=== PATIENT | female | born 1985 | race Caucasian/White ===

== ENCOUNTER 2022-07-07 20:47 | Inpatient (IN) | payer OTHER, SELFPAY ==
[2022-07-07] VITALS (18 sets, daily range): BP systolic 86–123; BP diastolic 46–104; PULSE 148–170; RESP 23–47; TEMP 38.3–38.6; O2SAT 90–97
--- NOTE | ~2022-07-07 | US_ITS ---
Renal-Bladder ultrasound Clinical History: Acute renal insufficiency Technique: Real-time sonographic imaging of the kidneys and urinary bladder was performed. Findings: The right kidney measures 11.6 cm in length and the left kidney measures 10.9 cm. There is no hydronephrosis or renal calculus identified. Renal cortical echogenicity is within normal limits. No renal mass lesion is identified. The urinary bladder is collapsed around a Dickerson catheter. Impression: Unremarkable ultrasound of the kidneys. Collapsed urinary bladder limits evaluation. Reviewed, dictated and finalized at location M. NER TECHNICIAN Impression: Unremarkable ultrasound of the kidneys. Collapsed urinary bladder limits evaluation.
--- NOTE | ~2022-07-07 | XR_ITS ---
Supine view of the abdomen Clinical history: NG tube placement Findings: NG tube is in satisfactory position. Bowel gas pattern is nonspecific. No evidence for obst ruction or free air. No abnormal mass lesion or calcification is seen. Osseous structures are intact. Bibasilar pulmonary airspace disease noted, with probable small left pleural effusion. Impression: NG tube in satisfactory position. Small left pleural effusion with bibasilar pulmonary airspace consolidation. Reviewed, dictated and finalized at location . HOUSE OPERATOR Impression: NG tube in satisfactory position. Small left pleural effusion with bibasilar pulmonary airspace consolidation.
--- NOTE | ~2022-07-07 | XR_ITS ---
EXAMINATION: XR chest 1V portable DATE: 07/07/2022 21:50 INDICATION: Shortness of breath. TECHNIQUE: A single frontal view of the chest was obtained. COMPARISON: None. FINDINGS: There are airspace opacities in right mid and lower lung zones and left perihilar region. N o pleural effusion or pneumothorax. The heart size is normal. IMPRESSION: 1. Airspace opacities in right mid and lower lung zones and left perihilar region, consistent with pn eumonia. Reviewed, dictated and finalized at location A. LY LIFE COUNSELOR IMPRESSION: 1. Airspace opacities in right mid and lower lung zones and left perihilar donya on, consistent with pneumonia.
--- NOTE | ~2022-07-07 | XR_ITS ---
Portable chest x-ray Comparison: 07/07/2022 Clinical History: Tube placement Findings: Endotracheal tube is present, tip 1 cm above the chihco. NG tube and right IJ line are in satisfactory positions. There is extensive dense left lower lobe consolidation with air bronchograms and possible small left pleural effusion. There is more hazy airspace disease throughout the right domonique ng base and bilateral perihilar regions. Cardiomediastinal silhouette is stable. Bones and soft tiss ues are unremarkable. Impression: ET tube tip is 1 cm above the chicho. Consider mild retraction. Additional support tubes in place, as above. Extensive bibasilar and perihilar airspace consolidation, as detailed above, most confluent at the le ft lung base. Correlate for pulmonary edema/atelectasis versus pneumonia. Probable small left pleural effusion. Reviewed, dictated and finalized at [facility]. 'S ADVISER Impression: ET tube tip is 1 cm above the chicho. Consider mild retraction. Additional supp ort tubes in place, as above. Extensive bibasilar and perihilar airspace consolidation, as detailed above, mo st confluent at the left lung base. Correlate for pulmonary edema/atelectasis v ersus pneumonia. Probable small left pleural effusion.
--- NOTE | ~2022-07-07 | US_ITS ---
EXAMINATION:US venous doppler LE BI INDICATION:Elevated d-dimer TECHNIQUE: Multiple grayscale, color flow and Doppler images of the right and left lower extremity de ep venous systems were obtained and reviewed. COMPARISON:No prior studies for comparison. FINDINGS: The common femoral, superficial femoral and popliteal veins demonstrate normal respiratory variation, augmentation and compressibility. Color flow is also seen within the posterior tibial, pe roneal, greater saphenous and profunda veins. IMPRESSION: 1: No lower extremity deep venous thrombosis. Reviewed, dictated and finalized at location B. CLERK
--- NOTE | 2022-07-07 21:04 | ECG_ITS ---
Measurements Intervals [place] Rate: 169 P: ID: 0 QRS: 97 QRSD: 88 T: 69 QT: 290 QTc: 486 Interpretive Statements SUPRAVENTRICULAR TACHYCARDIA BORDERLINE RIGHT AXIS DEVIATION [QRS AXIS > 90] ABNORMAL RHYTHM ECG NO PREVIOUS ECG AVAILABLE FOR COMPARISON Electronically Signed On 07-08-2022 15:15:57 BOTTOM PRESSER by Luis Alberto Nina M.D.
--- NOTE | 2022-07-07 21:18 | ED.GENADULT ---
HPI - General Adult General Chief complaint: Nausea/Vomiting/Diarrhea Stated complaint: sob Time Seen by Provider: 07/07/22 21:12 History of Present Illness HPI narrative: 37-year-old female presented to the emergency department for evaluation of cough fever and shortness of breath since Monday. Patient reports she started to have some cough and congestion last week and it began to worsen over the weekend and then this week it began to rapidly worsen. Patient reports she has had COVID previously. Patient denies any other significant past medical history. Patient does take Zoloft but states she has not been able to take her Zoloft due to feeling poorly. Patient denies any prior history of cancer. Patient denies any prior history of PE DVT. Related Data Allergies Allergy/AdvReac Type Severity Reaction Status Date / Time No Known Allergies Allergy Verified 07/07/22 21:47 Review of Systems Review of Systems: CONSTITUTIONAL: See HPI EYES: Denies visual changes, redness, or discharge. ENT: Denies rhinorrhea, congestion, sore throat, or otalgia. CARDIOVASCULAR: Denies chest pain, palpitations, or edema. RESPIRATORY: See HPI GASTROINTESTINAL: Denies abdominal pain, nausea, vomiting, or diarrhea. GENITOURINARY: Denies dysuria or hematuria. SKIN: Denies rash or itching. MUSCULOSKELETAL: Denies back pain, joint pain, or myalgia. NEUROLOGIC: Denies headache, numbness, or weakness. Exam Narrative: APPEARANCE: Ill-appearing HEAD: normocephalic, atraumatic. EYES: PERRLA/EOMI, conjunctivae clear. NOSE: Normal no drainage EARS: Right TM erythema THROAT: Pharynx clear, no exudate. NECK: Supple. No adenopathy, no masses. RESPIRATORY: Decreased breath sounds in lower lung coleman CARDIOVASCULAR: Tachycardia ABDOMINAL: Soft, nontender, nondistended, normal bowel sounds MUSCULOSKELETAL: Moves all extremities. Strength/ROM intact, No edema, No calf tenderness. NEURO: Alert. Cranial nerves II through XII intact. Grossly intact Course Course Emergency Course: 37-year-old female with right-sided pneumonia. Patient's fever was treated with IV Tylenol and IV Toradol. Blood cultures are pending. Patient was treated with Rocephin and azithromycin. Patient does have significant electrolyte abnormalities including hypokalemia and hyponatremia along with elevated lactic acid of 7.1. 3 L of normal saline were ordered along with maintenance fluids. Creatinine is 3.4 and patient's BUN is 40. Patient's potassium was replaced orally and through IV. Patient was updated on results of the work-up and plan for admission. Case was discussed with hospitalist and patient was placed in the IMU. Patient was placed on Vapotherm for increased work of breathing. Vital Signs Vital signs: Vital Signs Temperature 101.4 F H 07/07/22 20:57 Pulse Rate 170 H 07/07/22 20:57 Respiratory Rate 24 H 07/07/22 20:57 Blood Pressure 123/104 H 07/07/22 20:57 Pulse Oximetry 91 07/07/22 20:57 Oxygen Delivery Room Air 07/07/22 20:57 Temperature 101.4 F H 07/07/22 20:57 Pulse Rate 170 H 07/07/22 20:57 Respiratory Rate 24 H 07/07/22 20:57 Blood Pressure 123/104 H 07/07/22 20:57 Pulse Oximetry 91 07/07/22 20:57 Oxygen Delivery Room Air 07/07/22 20:57 Medical Decision Making Vital Signs Vital Signs: Vital Signs Temperature 101.4 F H 07/07/22 20:57 Pulse Rate 170 H 07/07/22 20:57 Respiratory Rate 24 H 07/07/22 20:57 Blood Pressure 123/104 H 07/07/22 20:57 Pulse Oximetry 91 07/07/22 20:57 Oxygen Delivery Room Air 07/07/22 20:57 Temperature 101.4 F H 07/07/22 20:57 Pulse Rate 170 H 07/07/22 20:57 Respiratory Rate 24 H 07/07/22 20:57 Blood Pressure 123/104 H 07/07/22 20:57 Pulse Oximetry 91 07/07/22 20:57 Oxygen Delivery Room Air 07/07/22 20:57 Lab Data Lab results reviewed: Yes I reviewed the patient's lab results. 07/07/22 21:35 07/07/22 21:35 Labs: Lab Results
[2022-07-07] MEDS: SODIUM CHLORIDE 0.9% IV 1,000 ML 999 ML IV CONT ×3 (21:23→23:59)
[2022-07-07] MEDS: LACTATED RINGERS 1,000 ML 999 ML IV CONT (21:23)
[2022-07-07 21:45] LABS: Basophils Percent Auto 1.6 % (0.2-1.2); Eosinophils Absolute Auto 0.1 K/mm3 (0-0.3); Eosinophils Percent Auto 7.3 % (0-4.4); Hematocrit 43.5 % (37.0-47.0); Hemoglobin 15.2 g/dL (12.0-15.0); Immature Granulocyte Absolute 0.02 K/mm3 (0.00-0.031); Immature Granulocyte Percent A 1.6 % (0-0.5); Lymphocytes Absolute Auto 0.19 K/mm3 (0.9-3.2); Lymphocytes Percent Auto 15.3 % (18.3-44.2); Mean Corpuscular HGB Conc 34.9 g/dl (32-36); Mean Corpuscular Hemoglobin 31.7 pg (26-34); Mean Corpuscular Volume 90.6 fl (80-100); Mean Platelet Volume 10.5 fl (7.4-10.4); Monocytes Absolute Auto 0.1 K/mm3 (0.1-0.6); Monocytes Percent Auto 8.1 % (2.6-8.5); Neutrophils Absolute Auto 0.8 K/mm3 (1.3-6.7); Neutrophils Percent Auto 66.1 % (45.5-73.1); Platelet Count Result 192 k/mm3 (150-375); Red Cell Distribution Width 12.3 % (11.5-14.5)
[2022-07-07 21:47] LABS: White Blood Count 1.2 K/mm3 (4.5-10.0)
[2022-07-07] MEDS: LORazepam INJ (*CRX) 2 MG/ML VIAL 1 MG IV PUSH (21:49)
[2022-07-07] MEDS: SERTRALINE HCL 50 MG TABLET PO (21:49)
[2022-07-07] MEDS: ALBUTEROL SULFATE NEB 2.5 MG/3 ML INH 5 MG INHALATION (21:51)
[2022-07-07 22:03] LABS: Lactic Acid Reflex 7.1 mmol/L (0.7-2.0)
[2022-07-07 22:05] LABS: Albumin Level 4.7 g/dL (3.5-5.1); Alkaline Phosphatase 44 U/L (38-126); Anion Gap 21 mmol/L (8-16); Aspartate Amino Transferase 65 U/L (14-36); Bilirubin,Total 0.6 mg/dL (0.2-1.3); Blood Urea Nitrogen 40 mg/dL (7-17); Calcium 8.3 mg/dL (8.4-10.2); Carbon Dioxide 16 mmol/L (22-30); Chloride 92 mmol/L (98-107); Estimated CRCL calculation 19 ml/min; Estimated Glomerular Filt Rate 15; Glucose 112 mg/dL (65-110); Lipase 13 U/L (23-300); Potassium 2.7 mmol/L (3.4-5.0); Sodium 129 mmol/L (137-145)
[2022-07-07 22:06] LABS: Alanine Aminotransferase 46 U/L (6-35)
[2022-07-07 22:21] LABS: Influenza A QL RT-PCR Negative (Negative); Influenza B QL RT-PCR Negative (Negative); RSV RNA, RT-PCR Negative (Negative); SARS-CoV-2 RNA PCR Negative
[2022-07-07 22:33] LABS: Band Neutrophils Percent 40 % (0-6); Blastocytes 2 %; Large Platelets Present; Lymphocytes Absolute Manual 0.18 K/mm3 (1.1-4.5); Metamyelocytes Percent 10 %; Monocytes Absolute Manual 0.07 K/mm3 (0.1-0.90); Monocytes Percent Manual 6 % (3-9); Neutrophils Percent Manual 27 % (46-73); Platelet Estimate Adequate (Adequate); Total Cells Counted 100
[2022-07-07 22:34] LABS: Macrocytosis 1+ (NORMAL); Poikilocytosis 1+ (NORMAL)
[2022-07-07 22:35] LABS: Atypical Lymphocytes Present; Burr Cells 1+ (NORMAL); Crenated RBC 1+ (NORMAL); Rouleaux 1+ (NORMAL); Schistocytes None Seen (NORMAL)
[2022-07-07] MEDS: KCL 20 MEQ/SW 100 ML 100 ML 50 MEQ IVPB (22:41)
[2022-07-07] MEDS: POTASSIUM CHLORIDE 20 MEQ PACKET (FOR LIQUID) 40 MEQ PO (22:41)
[2022-07-07 23:29] LABS: Strep Group A RT-PCR DETECTED (Negative)
[2022-07-07] MEDS: KETOROLAC 15 MG/ML VIAL (*BKC) IV PUSH (23:30)
[2022-07-07 23:43] LABS: Creatine Kinase 969 U/L (30-135)
--- NOTE | 2022-07-07 23:50 | PC.NURSE ---
Dr. Lim, hospitalist, contacted and aware of pt's low bp.
[2022-07-08] VITALS (59 sets, daily range): BP systolic 68–133; BP diastolic 49–97; PULSE 121–150; RESP 18–42; TEMP 37.7–38.8; O2SAT 86–100; BMI 26.9; BMI 28.7
--- NOTE | 2022-07-08 00:20 | PC.NURSE ---
Dr. Lim, hospitalist at bedside evaluating pt, 3rd IV placed.
[2022-07-08 00:42] LABS: Reflex Lactic Acid Yes or No Add Lactic
--- NOTE | 2022-07-08 00:45 | PM.IMHP ---
H&P: HPI History of Present Illness Date/Time: 07/08/22 00:45 Chief Complaint: sob Narrative: This is a 37 yo female with PMHx significant for Depression and generalized anxiety, patient presents to ED with 2 days of cough non productive, fevers, chills, sob, poor per oral intake, poor appetite, generalized malaise, generalized weakness, muscle aches and pains, states that her 2 children are sick as well at home she has been managing at home however today it just got worse . In emergency room patient was found to have low oxygen saturation as well, requiring HFONC, had episode of hypotension as well wich responded to fluids. Preliminary work up was significant for a lactic acid of 7, a WBC count of 1.2, bands 40%, blasts 2%, sodium 129, Cr 3.4 , Bun 40.Upon arrival to IMU patient was noted to have significant change of status with altered consciousness, low pulse oxygenation, increased Fi O2 to 100% ABG showed a ph of 7.1, decision was made to place patient on ventilator support.Patient is now transferred to ICU on ventilator support. Review of Systems Constitutional: Constitutional: Reports chills, Reports fever(s), Reports malaise, Reports night sweats, Reports poor appetite and Reports weakness Eyes: Eyes: Denies change in vision ENT: Denies dysphagia and Denies odynophagia Respiratory: Respiratory: Reports chest congestion, Reports cough and Reports dyspnea Gastrointestinal: Gastrointestinal: Denies abdominal pain, Denies dyspepsia, Denies heartburn, Denies diarrhea, Denies nausea and Denies vomiting Genitourinary: Genitourinary: Denies dysuria Musculoskeletal: Musculoskeletal: Reports myalgias Integumentary/Breasts: Skin/Breast: Denies rash Neurologic: Denies focal weakness and Denies Sensory deficit (Neuro) Psychiatric: Psychiatric: Reports no additional psychiatric complaints and Reports as per HPI Endocrine: Endocrine: Denies cold intolerance, Denies flushing, Denies heat intolerance, Denies polyphagia, Denies polydipsia and Denies palpitations Hematologic/Lymphatic: Hematologic/Lymphatic: Reports no additional hematologic/lymphatic complaints and Reports as per HPI Allergic/Immunologic: Allergic/Immunologic: Reports no additional allergic/immunologic complaints and Reports as per HPI [facility] Social History Social History Smoking status: Never smoker Alcohol intake: never Substance use: never Substance use type: does not use Lack of Transportation: No Lack of Food: Never True Current Housing: I Have Housing Concerned About Future Housing: No Difficulty Paying Gas/Electric Bills: No Difficulty Paying for Meds: No Currently Unemployed: No Education: High School Diploma/GED Difficulty w/ Childcare or Family Care: No Spiritual care concerns: No Meds Home Medications and Allergies Home Medications Medication Instructions Recorded Confirmed Type sertraline 50 mg tablet 50 mg PO DAILY 07/08/22 07/08/22 History Allergies Allergy/AdvReac Type Severity Reaction Status Date / Time No Known Allergies Allergy Verified 07/07/22 21:47 Vital Signs Vital Signs - 24 hr 07/07/22 20:57 07/07/22 21:56 07/07/22 22:10 Temperature 101.4 F H Pulse Rate 170 H 153 H 156 H Respiratory Rate 24 H 40 H 36 H Blood Pressure 123/104 H Pulse Oximetry 91 Oxygen Delivery Room Air 07/07/22 21:59 07/07/22 22:02 07/07/22 22:07 Temperature 101 F H Pulse Rate 160 H 161 H 164 H Respiratory Rate 33 H 23 H 41 H Blood Pressure 101/86 Pulse Oximetry 94 97 95 Oxygen Delivery 07/07/22 22:15 07/07/22 22:30 07/07/22 22:45 Temperature Pulse Rate 160 H 152 H 152 H Respiratory Rate 40 H 32 H 45 H Blood Pressure Pulse Oximetry 90 93 90 Oxygen Delivery 07/07/22 23:00 07/07/22 23:15 07/07/22 23:26 Temperature Pulse Rate 150 H 151 H 154 H Respiratory Rate 40 H 32 H 47 H Blood Pressure 108/48 L Pulse Oximetry 91 91 Oxygen Delivery 07/07/22 23:30 0
--- NOTE | 2022-07-08 01:30 | PC.NURSE ---
Pt states feeling a little bit better speaking in full sentences, but states feeling anxious.
--- NOTE | 2022-07-08 01:34 | PC.NURSE ---
Pt resting comfortably in bed, skin warm/dry. Dr. Greco aware of pt's blood pressure and condition. Report given to IMU RN.
--- NOTE | 2022-07-08 02:29 | ADMGEN ---
This patient, Leisa Brown, was admitted to IMU Room 202-01. Patient/family oriented to hospital policies and general routines including ID bracelet, bed and alarms, visiting hours, pain management, procedures, bathroom and other care routines, personal items, smoking policy, room service/diet, and visiting hours. Information on how to activate the Rapid Response Team has been discussed. Patient/Family are encouraged to report perceived risks to care and to ask questions if they do not understand what they are told or what they should do.
[2022-07-08] MEDS: SODIUM CHLORIDE 0.9% IV 1,000 ML 125 ML IV CONT (02:35)
[2022-07-08] MEDS: MORPHINE SULFATE (*CRX) 2 MG/ML INJ 1 MG IV PUSH (03:08)
[2022-07-08] MEDS: LORazepam INJ (*CRX) 2 MG/ML VIAL 1 MG IV PUSH (03:09)
[2022-07-08] MEDS: ETOMIDATE 20 MG/10 ML AMPUL 15 MG IV PUSH (03:36)
[2022-07-08 03:46] LABS: Basophils Percent Auto 1.8 % (0.2-1.2); Eosinophils Percent Auto 0.9 % (0-4.4); Hematocrit 34.6 % (37.0-47.0); Hemoglobin 11.9 g/dL (12.0-15.0); Lymphocytes Absolute Auto 0.09 K/mm3 (0.9-3.2); Lymphocytes Percent Auto 8.2 % (18.3-44.2); Mean Corpuscular HGB Conc 34.4 g/dl (32-36); Mean Corpuscular Hemoglobin 31.8 pg (26-34); Mean Corpuscular Volume 92.5 fl (80-100); Mean Platelet Volume 10.4 fl (7.4-10.4); Monocytes Absolute Auto 0.1 K/mm3 (0.1-0.6); Monocytes Percent Auto 6.4 % (2.6-8.5); Neutrophils Absolute Auto 0.9 K/mm3 (1.3-6.7); Neutrophils Percent Auto 82.7 % (45.5-73.1); Platelet Count Result 113 k/mm3 (150-375); Red Blood Count 3.74 M/mm3 (4.2-5.4); Red Cell Distribution Width 12.5 % (11.5-14.5)
[2022-07-08] MEDS: ROCURONIUM BROMIDE 50 MG/5 ML VIAL 70 MG IV PUSH (03:47)
[2022-07-08] MEDS: MIDAZOLAM 100MG/NS 100ML(*CRX) 100 MG/100 ML BAG IV CONT (04:00)
[2022-07-08] MEDS: FENTANYL 2,500MCG/NS250ML(*CRX 2,500 MCG/250 ML BAG IV CONT (04:00)
[2022-07-08 04:03] LABS: Anion Gap 14 mmol/L (8-16); Blood Urea Nitrogen 37 mg/dL (7-17); Calcium 6.2 mg/dL (8.4-10.2); Carbon Dioxide 13 mmol/L (22-30); Chloride 106 mmol/L (98-107); Creatine Kinase 1341 U/L (30-135); Estimated CRCL calculation 23 ml/min; Estimated Glomerular Filt Rate 20; Glucose 108 mg/dL (65-110); Lactate Dehydrogenase 422 U/L (120-246); Magnesium 1.4 mg/dL (1.6-2.3); Phosphorus 5.6 mg/dL (2.5-4.5); Potassium 3.4 mmol/L (3.4-5.0); Sodium 133 mmol/L (137-145)
[2022-07-08 04:13] LABS: Lactic Acid Reflex 5.7 mmol/L (0.7-2.0)
[2022-07-08 04:42] LABS: White Blood Count 1.1 K/mm3 (4.5-10.0)
--- NOTE | 2022-07-08 05:20 | WPDPROCEDUR ---
Procedures Intubation Intubation Date: 07/08/22 Intubation Time: 03:45 Sedative: etomidate Mg given: 15 Paralytic: rocuronium Mg given: 70 Laryngoscope: fiber optic video scope Assist device used: fiber optic device ET tube size: 7.5 Tube secured depth (cm): 25 Tube secured location: lips Tube placement confirmation: visualized tube passing through cords, equal breath sounds bilaterally, no breath sounds over epigastrium and confirmation by capnometry Patient tolerated procedure: no complications Intubation complications: none
--- NOTE | 2022-07-08 05:20 | WPDPROCEDUR ---
Procedures Central Line Placement Right IJ: Central Line Date: 07/08/22 Central Line Time: 04:40 Consent: I have discussed with the patient and/or surrogate, the non-emergent placement of a central venous catheter, including its clinical necessity/indication and associated potential risks and complications. The patient and/or surrogate understand(s) and acknowledge(s) the need to proceed with central venous catheter insertion as an important element of the patient's clinical management. Time Out Performed: Yes Patient Position: supine Patient placed on monitor/pulse ox: Yes Provider Prep: mask, sterile gown, sterile gloves, Max. sterile barrier precautions, cap and hand hygiene with conventional soap/water or alcohol based hand rub Central line prep: 2% Chlorhexidine scrub Sterile US Technique with sterile gel/sterile probe covers: Yes Central line lumen inserted: triple Sinhala: 15 Length (cm): 15 Depth of Insertion (cm): 15 Post Procedure: sutured in place, good blood return, all ports aspirated, flushed, capped, transparent dressing, hemostatic product, securement product and aseptic technique maintained throughout procedure Post procedure x-ray: tip of catheter in good position and no pneumothorax seen Patient tolerated procedure: no complications Complications: none
[2022-07-08] MEDS: PANTOPRAZOLE SODIUM IV 40 MG VIAL 80 MG IV PUSH (05:24)
[2022-07-08 05:36] LABS: Appearance Urine Cloudy (Clear); Bilirubin Urine Negative (Negative); Blood Urine 3+ (Negative); Color Urine Yellow (Yellow); Glucose Urine UA Negative (Negative); Hematocrit 35.3 % (37.0-47.0); Hemoglobin 12.1 g/dL (12.0-15.0); Ketones Urine Negative (Negative); Leukocyte Esterase Ur Negative LEU/UL (Negative); Nitrate Urine Negative (Negative); Protein Urine 3+ mg/dL (Negative); Specific Grav Ur 1.025 (1.001-1.035); Urobilinogen Urine 0.2 mg/dL (<2.0); pH Urine 5.5 (5.0-9.0)
[2022-07-08 05:41] LABS: Amorphous Sediment Urine Few; Bacteria Urine Trace /hpf; Mucus Urine Rare /lpf; Squamous Epithelial Cell Urine Few /hpf (Few)
[2022-07-08 05:44] LABS: Magnesium 1.5 mg/dL (1.6-2.3); Phosphorus 6.2 mg/dL (2.5-4.5)
[2022-07-08 05:46] LABS: INR 1.4; Prothrombin Time 16.5 Seconds (11.1-14.7)
[2022-07-08 05:48] LABS: Fibrinogen 511 mg/dl (215-510); Partial Thromboplastin Time 41.5 SECONDS (22.3-36.8)
[2022-07-08 05:52] LABS: SPREG INTERNAL CONTROL Positive; Serum Qual hCG Negative
[2022-07-08 06:02] LABS: Add Urine Microscopic? YES
[2022-07-08 06:04] LABS: D Dimer 15.33 ug/mL (<0.48)
[2022-07-08 06:07] LABS: Immature Platelet Fraction Pct 5.4 % (0.9-11.2); Mean Platelet Volume 10.6 fl (7.4-10.4); Platelet Count Result 118 k/mm3 (150-375)
[2022-07-08 06:16] LABS: Alveolar/Arterial O2 Gradient 561.6 mmHg; Base Excess ABG -13.1 mEq/l (+/-2.0); Carboxyhemoglobin 0.3 % THb (0-2.0); Fractional Inspired Oxygen 100 %; Methemoglobin ABG 0.4 %THb (0-1.5); Oxygen Content ABG 17.6 %vol (16.0-22.0); Oxygen Saturation ABG 97.3 % (95.0-100.0); Oxyhemoglobin 96.3 % THb (90.0-100.0); PCO2 ABG 36.4 mmHg (35.0-45.0); PO2 FiO2 Ratio Arterial Blood 1.15 %; Total Hemoglobin 12.9 g/dL (12.0-18.0)
[2022-07-08 06:17] LABS: Device VENTILATOR; Modified Allen's Test Pass; Site Drawn RIGHT RADIAL; pH ABG 7.203 (7.350-7.450)
[2022-07-08 06:18] LABS: Arterial Blood Gas Vent Mode CMV; Arterial Blood Gas Ventilator rate 18 /MIN
[2022-07-08 06:19] LABS: Arterial Blood Gas PEEP 5 cmH2O; Arterial Blood Gas Tidal Volume 400 ml
[2022-07-08] MEDS: NOREPINEPHRINE 8 MG/D5W 250 ML 8 MG/250 ML BAG 9.38 MG IV CONT (06:19)
[2022-07-08] MEDS: CENTRAL LINE FLUSH 10 ML IV PUSH ×2 (06:33→13:21)
[2022-07-08] MEDS: MAGNESIUM SULF 2 GM/WATER 50ML 2 GM/50 ML BAG IVPB (06:42)
[2022-07-08 07:04] LABS: pH ABG 7.113 (7.350-7.450)
[2022-07-08 07:05] LABS: Base Excess ABG -14.3 mEq/l (+/-2.0); HCO3 ABG 14.8 mEq/l (22.0-26.0); PCO2 ABG 47.4 mmHg (35.0-45.0); PO2 ABG 68.7 mmHg (80.0-100.0)
[2022-07-08 07:07] LABS: Oxygen Content ABG 15.6 %vol (16.0-22.0); Total Hemoglobin 12.8 g/dL (12.0-18.0)
[2022-07-08 07:08] LABS: Carboxyhemoglobin 0.3 % THb (0-2.0); Methemoglobin ABG 0.4 %THb (0-1.5); Oxyhemoglobin 86.2 % THb (90.0-100.0)
[2022-07-08 07:09] LABS: Fractional Inspired Oxygen 100 %; Reduced Hemoglobin 13.1 %THb (0-5.0)
[2022-07-08 07:10] LABS: Alveolar/Arterial O2 Gradient 596.9 mmHg
[2022-07-08 07:11] LABS: Device HIGH FLOW THERAPY; PO2 FiO2 Ratio Arterial Blood 0.69 %; Site Drawn LEFT BRACHIAL
[2022-07-08] MEDS: SODIUM BICARBONATE 8.4% 50 MEQ/50 ML SYRINGE 100 MEQ IV PUSH (07:17)
[2022-07-08] MEDS: SODIUM CHLORIDE 0.9% IV 500 ML 999 ML IV CONT (07:18)
[2022-07-08] MEDS: VASOPRESSIN INJ 100 UNITS in DEXTROSE 5% 95 ML IV CONT (07:19)
[2022-07-08] MEDS: KCL 40 MEQ/WATER 100 ML 100 ML 25 ML IVPB (07:20)
[2022-07-08] MEDS: SODIUM BICARBONATE 8.4% 150 MEQ in DEXTROSE 5% 1,000 ML 950 ML 125 MEQ IV CONT (07:40)
[2022-07-08] MEDS: HYDROCORTISONE SODIUM SUCCINATE 100 MG/2 ML VIAL IV PUSH ×2 (08:01→13:21)
[2022-07-08] MEDS: MINERAL OIL/WHITE PETROLATUM OINTMENT 1 APPLIC EACH EYE (08:09)
--- NOTE | 2022-07-08 09:51 | WPDCNINT ---
Assessment and Plan Assessment and plan (1) Septic shock: Code(s): A41.9 - Sepsis, unspecified organism; R65.21 - Severe sepsis with septic shock Status: Acute Assessment and Plan: Patient presented with shortness of breath, nonproductive cough, fevers, chills, decreased appetite, poor oral intake, general malaise, weakness and fatigue -chest x-ray showed diffuse pneumonia/consolidation -received 30 mL/kg of IV fluids -noninvasive cardiac output monitoring showed patient was fluid responsive of give additional 500 IV fluid bolus this morning -patient on Levophed and vasopressin, will maintain MAP > 65-70 mmHg for adequate end organ perfusion -patient does have elevated creatinine and decreased urine output with acute kidney injury -lactic acids are elevated and trending down, continue to trend -07/07 blood and sputum cultures have been obtained pending -antibiotics were switched to vancomycin, azithromycin and cefepime (07/08) -stress dose steroids were started (2) Acute respiratory failure with hypoxia: Code(s): J96.01 - Acute respiratory failure with hypoxia Status: Acute Assessment and Plan: Admitted with pneumonia with complains of shortness of breath, nonproductive cough, fevers and chills -she was exposed to 2 children while strep throat chest x-ray showed Extensive bibasilar and perihilar airspace consolidation, as detailed above, most confluent at the left lung base. Correlate for pulmonary edema/atelectasis versus pneumonia. -patient's ABG showed a pH of 7.1, she was on 100% high-flow therapy, impending respiratory failure was intubated on 07/08/2022 in the morning -currently on CMV mode of ventilation, peep of 5 and 100% FiO2, wean FiO2 to maintain O2 sats greater than 92% -will add bronchodilators -sedated with fentanyl and Versed infusion, maintain RASS of 0 to -2, daily sedation vacation -continue antibiotics as (3) Pneumonia: Code(s): J18.9 - Pneumonia, unspecified organism Status: Acute Assessment and Plan: Antibiotics as above (4) CORTES (acute kidney injury): Code(s): N17.9 - Acute kidney failure, unspecified Status: Acute Assessment and Plan: Acute kidney injury likely related to shock, infection, streptococcal related globulin FiO2 -07/08 unremarkable renal ultrasound of the kidneys -patient received adequate amount of IV fluids - CK levels elevated -switched IV fluids to bicarb infusion secondary to acidosis and rhabdomyolysis -nephrology has been consulted -you continue monitor urine output, renal function electrolytes (5) Electrolyte imbalance: Code(s): E87.8 - Other disorders of electrolyte and fluid balance, not elsewhere classified Status: Acute Assessment and Plan: Potassium and magnesium replaced overnight by the hospitalist -mild hyponatremia, will continue to monitor Plan DVT prophylaxis: SQ Lovenox Stress ulcer prophylaxis: Protonix Nutrition: Will start tube feeds in a.m. Lines: Right IJ triple-lumen catheter placed on 07/08/2022 Left femoral arterial line placed on 07/08/2022 Code Status: Full code Critical Care Time Spent: 55 minutes Discussed with and patient's mother and updated with patient's condition and plan of care. I explained to them regarding septic shock and end-organ failure, I answered all questions Due to a high probability of clinically significant, life threatening deterioration, the patient required my highest level of preparedness to intervene emergently and I personally spent this critical care time directly and personally managing the patient. This critical care time included obtaining a history; examining the patient; pulse oximetry; ordering and review of studies; arranging urgent treatment with development of a management plan; evaluation of patient's response to treatment; frequent reassessment; and discussions with other providers. It was exclusive of separately soco
--- NOTE | 2022-07-08 10:35 | PM.CNNEP ---
Assessment and Plan Assessment and plan (1) CORTES (acute kidney injury): Code(s): N17.9 - Acute kidney failure, unspecified Status: Acute Assessment and Plan: due to several issues: shock/hemodynamics instability infection possible prerenal factors rhabodmyolysis evaluation to date noted: renal u/s without obstruction CPK levels are elevated urine studies pending agree with bicarb IVFs now remains at risk for PEOPLESOFT ANALYST/dialysis follow repeat labs and UOP (2) Septic shock: Code(s): A41.9 - Sepsis, unspecified organism; R65.21 - Severe sepsis with septic shock Status: Acute Assessment and Plan: as evidence by SOB, fever, malaise, CORTES, lactic acidosis s/p aggressive IVF resuscitation now on vasopressor therapy follow trend of lactic acid follow culture data continue antibiotic therapy (3) Acute respiratory failure with hypoxia: Code(s): J96.01 - Acute respiratory failure with hypoxia Status: Acute Assessment and Plan: due to pneumonia as noted by admission CXR follow cultures on antibiotics bronchodilators added as well as steroids ventilator weaning when more stable (4) Pneumonia: Code(s): J18.9 - Pneumonia, unspecified organism Status: Acute Assessment and Plan: see #3 Long extensive discussion ( greater than 20 minutes) with the patient's family at bedside with regard to her acute medical issues including her acute renal failure/ acute kidney injury and the hope that current aggressive measures will help stabilize her renal function with the hope that renal replacement therapy/dialysis will not be needed. Discussed case with Dr. Bolivar. Will continue to follow. History of Present Illness Reason for Consult Consult date: 07/08/22 Reason for consult: acute renal failure (1040) Chief Complaint Chief complaint: Pneumonia,hypokalemia,hyponatremia,CORTES History of Present Illness Narrative: All the information I obtained is from review of the electronic medical record, discussion with the physician/ nurses involved in the patient's care, and discussion with her family at bedside as the patient is unable to provide me with any history as she is currently intubated and on mechanical ventilation. The patient is a 37-year-old female with a past medical history as outlined below who presented to [facility] Emergency room a few days ago with complaints of cough, fever, and shortness of breath. The symptoms have been present for the last 3 or 4 days and a progressively worsened. Other associated symptoms included fevers, chills, poor oral intake, decreased appetite, generalized malaise, weakness, and fatigue. Furthermore, she reported significant aches and pains in her muscles as well. Apparently, her 2 children are sick with strep throat and her symptoms seem to worsen since that discovery. She presented to the emergency room for further assessment given her worsening symptoms in general. Workup and evaluation in the emergency room demonstrated relative hypoxia requiring application of a high-flow nasal oxygen. She also is hypotensive but actually responded to aggressive IV fluid support. Routine blood test demonstrated an elevated lactic acid of 7.1, leukopenia with a white blood cell count of 1.2 with 40% bandemia, relative hyponatremia, and elevated BUN and creatinine consistent with acute kidney injury/acute renal failure. Her CPK was elevated as was her LFTs and she was noted to be hypokalemic as well. test was negative and her chest x-ray showed extensive bibasilar and perihilar airspace consolidation thought to be a combination of possible pulmonary edema /atelectasis / pneumonia. Her ABG showed a pH is 7.11, pCO2 47 and a PO2 of 668 despite 100% high-flow oxygen therapy and hand she had to be intubated and placed on mechanical ventilation. due to concerns for a pending respiratory failure as
[2022-07-08] MEDS: NOREPINEPHRINE 8 MG/D5W 250 ML 8 MG/250 ML BAG 56.25 MG IV CONT (10:54)
[2022-07-08 10:57] LABS: Creatinine Urine 157.5 mg/dL
[2022-07-08 11:08] LABS: Eosinophil Urine None Seen % (None Seen)
[2022-07-08] MEDS: PANTOPRAZOLE SODIUM IV 40 MG VIAL IV PUSH (11:12)
[2022-07-08] MEDS: ALBUMIN HUMAN 25% 25 GM/100 ML 100 ML IVPB (11:12)
[2022-07-08 11:21] LABS: Urine Eos QC 2nd Tech Confirmed
[2022-07-08 11:43] LABS: Potassium Urine Random 67.8 meq/L; Sodium Urine Random 21 meq/L
--- NOTE | 2022-07-08 11:43 | P.PCNBED_ITS ---
Procedures Arterial Line Arterial Line Date: 07/08/22 Arterial Line Time: 09:15 Discussed with the patient/family/POA, the placement of an arterial catheter, including its clinical necessity/indication and associated potential risks, benefits and alternatives.: Yes Patient/family/POA and/or understands and acknowledges the need to proceed with the arterial catheter insertion as an important element of the patient's clinical management.: Yes Time Out Performed: Yes Patient Position: supine Branch Service Leader Prep: sterile gown, sterile gloves, mask and hat Site: left and femoral Site Prep: chlorhexidine Skin Anesthesia: 1% lidocaine Technique used: ultrasound-guided Size (Gauge): 14 Length: 12 cm Closure/Dressing: suture, transparent dressing, hemostatic product, antimicrobial product and securement product Patient tolerated procedure: well Complications: none
[2022-07-08 11:45] LABS: Glucose Point of Care 175 mg/dl (65-105)
[2022-07-08] MEDS: LEVALBUTEROL NEB 1.25 MG/3 ML 0.63 MG INHALATION (14:15)
[2022-07-08] MEDS: IPRATROPIUM BR 0.02% INH SOLN 0.5 MG/2.5 ML VIAL INHALATION (14:15)
--- NOTE | 2022-07-08 14:37 | PM.DS ---
DS: Admitting Diagnosis Discharge Date 07/08/2022 Admitting Diagnosis Septic shock DS: Discharge Diagnosis Discharge Diagnosis (1) Septic shock: Code(s): A41.9 - Sepsis, unspecified organism; R65.21 - Severe sepsis with septic shock Status: Acute (2) Acute respiratory failure with hypoxia: Code(s): J96.01 - Acute respiratory failure with hypoxia Status: Acute (3) Pneumonia: Code(s): J18.9 - Pneumonia, unspecified organism Status: Acute (4) CORTES (acute kidney injury): Code(s): N17.9 - Acute kidney failure, unspecified Status: Acute (5) Electrolyte imbalance: Code(s): E87.8 - Other disorders of electrolyte and fluid balance, not elsewhere classified Status: Acute DS: Summary Hospital Course Hospital Course: # Septic shock: Patient presented with shortness of breath, nonproductive cough, fevers, chills, decreased appetite, poor oral intake, general malaise, weakness and fatigue for past 2 days. She was noted to be hypoxic in the ER requiring high-flow nasal cannula an episode of hypotension has responded to fluids. Lactic acid was quite elevated at 7 with WBC count 1.2 with 40% bands and 2% blasts. Creatinine was 3.4. Patient was admitted to the IMU with severe sepsis however noted to have altered mental status with low oxygen saturation severe respiratory acidosis and hence was intubated emergently and transferred to the ICU -chest x-ray showed diffuse pneumonia/consolidation -received 30 mL/kg of IV fluids patient was started on Levophed and vasopressin to maintain organ perfusion. Also has CORTES with creatinine of 3.4 on admission Panculture Bacteremic with Gram-positive cocci in chains possibly Streptococcus Broad-spectrum antibiotic with vancomycin azithromycin cefepime Stress dose steroids were also started # acute respiratory failure with hypoxia: Associated with pneumonia Exposed to children with strep throat Chest x-ray with extensive bibasilar and perihilar airspace opacities /consolidation most confluent at the left lung base. Correlate for pulmonary edema/atelectasis versus pneumonia. ABG with pH 7.1 on 100% high-flow therapy impending respiratory failure Intubated 07/08/2022 and placed on full support Continue bronchodilators # pneumonia: On broad-spectrum antibiotics # CORTES: Creatinine 3.4 on admission. Continue IV fluid/resuscitation. Change to bicarb due to acidosis and rhabdomyolysis # lactic acidosis: Severely elevated on admission # electrolyte imbalance: Potassium and magnesium replaced overnight by the hospitalist mild hyponatremia, will continue to monitor # DVT prophylaxis: Lovenox # code status: Full code Disposition: Patient was transferred to [facility] ICU for higher level of care Where she was accepted and getting transferred. Time Spent with Patient Time attestation: Total time spent providing and/or coordinating discharge services: 30 minutes Exam Narrative: General: Intubated and sedated, in no distress HEENT:? Pupils equal and reactive, sclera is clear, ETT in place Neck:? Supple Respiratory:? Bilateral coarse breath sounds, decreased at bases, adequate air entry, no wheezing Cardiac:? Sinus tachycardia, S1-S2 is normal Abdomen:? Soft, nontender, nondistended, hypoactive bowel sounds Extremities:? No edema, palpable pedal pulses, warm Neuro:? Patient is intubated, sedated, does not open his eyes or follow simple commands Skin:? No skin lesions/rash noted Psych:? Unable to assess at this time DS: Data Data Completed and Pending Pending studies at discharge: Pending at discharge 07/08/22 06:26 Cytology [PTH] Routine Labs on day of discharge: Labs from last 24 hours 07/08/22 07/08/22 07/08/22 12:38 11:18 10:35 WBC RBC Hgb Hct MCV MCH MCHC RDW Plt Count MPV Immature Gran % (Auto) Neut % (Auto) Lymph % (Auto) [place] % (Auto) Eos % (Auto)
--- NOTE | 2022-07-08 15:51 | PM.TDS ---
Transfer Discharge Sum: Prov Provider Date of admission: 07/07/22 22:18 Primary care physician: Ronan Burkett MD Admitting clinician: Abigail Lim MD Consults: 07/08/22 Consult to Physician Routine Comment: spoke w dr @ 0910 (, ) Consulting Provider: Ned Xiong score caller/MD group to consult: Hem/Onc Reason for consultation: Leukopenia/Blasts Has provider been notified: Yes Consult to Physician Routine Comment: spoke with office @ 0905 (, ) Consulting Provider: Tian Murillo score caller/MD group to consult: Nephrology Reason for consultation: CORTES Has provider been notified: Yes DS: Admitting Diagnosis Discharge Date 07/08/2022 Admitting Diagnosis septic shock DS: Discharge Diagnosis Discharge Diagnosis (1) Septic shock: Code(s): A41.9 - Sepsis, unspecified organism; R65.21 - Severe sepsis with septic shock Status: Acute (2) Acute respiratory failure with hypoxia: Code(s): J96.01 - Acute respiratory failure with hypoxia Status: Acute (3) Pneumonia: Code(s): J18.9 - Pneumonia, unspecified organism Status: Acute (4) CORTES (acute kidney injury): Code(s): N17.9 - Acute kidney failure, unspecified Status: Acute (5) Electrolyte imbalance: Code(s): E87.8 - Other disorders of electrolyte and fluid balance, not elsewhere classified Status: Acute Transfer Discharge Sum: Med Medications Active and Home Medications: Home Medications sertraline 50 mg tablet 50 mg PO DAILY 07/08/22 [History Confirmed 07/08/22] Active Medications Dextrose (Dextrose 50% 25 Gm/50 Ml Syringe) 12.5 gm IV PUSH PRN PRN; Protocol PRN Reason: Hypoglycemia Enoxaparin Sodium (Enoxaparin 30 Mg/0.3 Ml Syringe) 30 mg SUB-Q DAILY ANGEL Glucagon (Glucagon For Inj 1 Mg Vial) 1 mg IM PRN PRN; Protocol PRN Reason: Hypoglycemia Hydrocortisone Sodium Succinate (Hydrocortisone Sodium Succinate 100 Mg/2 Ml Vial) 100 mg IV PUSH Q8HR ANGEL Last Admin: 07/08/22 13:21 Dose: 100 mg Acetaminophen (Ofirmev 1,000 Mg Ivpb) 1,000 mg in 100 mls @ 400 mls/hr IVPB Q6H PRN PRN Reason: Mild Pain (1-3) or Fever Stop: 07/08/22 22:16 Last Infusion: 07/08/22 08:35 Dose: Infused Fentanyl Citrate (Fentanyl 2,500 Mcg/Ns 250 Ml) 2,500 mcg in 250 mls @ 10 mls/hr IV CONT .Q25H ANGEL; Protocol Last Titration: 07/08/22 12:03 Dose: 100 mcg/hr, 10 mls/hr Midazolam HCl (Versed 100 Mg/Ns 100 Ml) 100 mg in 100 mls @ 4 mls/hr IV CONT .Q25H ANGEL; Protocol Last Titration: 07/08/22 12:02 Dose: 4 mg/hr, 4 mls/hr Norepinephrine Bitartrate (Levophed 8 Mg/D5w 250 Ml) 8 mg in 250 mls @ 52.5 mls/hr IV CONT .Q4H46M ANGEL; Protocol Last Titration: 07/08/22 15:38 Dose: Infused Vancomycin HCl (Vancomycin 1,000 Mg/D5w 250 Ml) 1,000 mg in 250 mls @ 250 mls/hr IVPB Q24H [facility] Last Infusion: 07/08/22 09:19 Dose: Infused Vasopressin 100 units/ (Dextrose) 100 mls @ 2.4 mls/hr IV CONT .[id number] ANGEL; Protocol Last Titration: 07/08/22 12:04 Dose: 0.04 units/min, 2.4 mls/hr Sodium Bicarbonate 150 meq/ (Dextrose) 1,100 mls @ 125 mls/hr IV CONT .Q8H48M ANGEL Last Infusion: 07/08/22 09:17 Dose: 125 mls/hr Cefepime HCl (Maxipime 2 Gm/D5w 50 Ml) 2 gm in 50 mls @ 100 mls/hr IVPB DAILY ANGEL Last Infusion: 07/08/22 09:50 Dose: Infused Azithromycin (Zithromax) 500 mg in 250 mls @ 250 mls/hr IVPB Q24H ANGEL Albumin Human (Albutein) 100 mls @ 60 mls/hr IVPB Q6HR ANGEL Stop: 07/09/22 19:39 Last Admin: 07/08/22 11:12 Dose: 60 mls/hr Dextrose (Dextrose 5% 1,000 Ml) 1,000 mls @ 100 mls/hr IVPB PRN PRN; Protocol PRN Reason: Hypoglycemia Insulin Aspart (Insulin Aspart (*Bkc) 100 Units/Ml) 3 - 6 units SUB-Q Q6HR [facility]; Protocol Last Admin: 07/08/22 12:01 Dose: Not Given Ipratropium [place] (Ipratropium Br 0.02% Inh Soln 0.5 Mg/2.5 Ml Vial) 0.5 mg INHALATION Q6HRT ANGEL Last Admin: 07/08/22 14:15 Dose: 0.5 mg Levalbuterol HCl (Levalbuterol Neb 1.25 Mg/3 Ml) 0.63 mg INHALATION Q6
[2022-07-11 16:51] LABS: Pneumococcal Antigen Urine Not Detected (Not Detected)
[2022-07-12 03:53] LABS: Legionella pneumophila Ag Ur Not Detected (Not Detected)
[2022-07-12 13:36] LABS: Prolactin 21.9 ng/mL (***)
[2022-07-12 20:42] LABS: Mycoplasma IgM Antibody Titer 97 U/mL (<770)
[2022-07-14 16:49] LABS: Chloride Rand Ur <20 mmol/L (32-290); Creatinine Random Urine 139 mg/dL (20-275)
== END 2022-07-08 15:51 | disposition short-term general hospital (02) | DRG 871 ==
LOC: ANHED 22:04 → ANHIMU 07-08 01:13 → ANHICU 07-08 10:00 → ANHIMU 07-11 11:30
PROVIDERS: Emergency Medicine; Internal Medicine; Admitting Provider Internal Medicine; Emergency Provider Emergency Medicine; PCP Internal Medicine; Visit Provider Internal Medicine
DX: A40.0 Sepsis due to streptococcus, group A (principal); J15.4 Pneumonia due to other streptococci; R65.21 Severe sepsis with septic shock; J96.01 Acute respiratory failure with hypoxia; N17.0 Acute kidney failure with tubular necrosis; E87.1 Hypo-osmolality and hyponatremia; E87.21 Acute metabolic acidosis; Z20.822 Contact with and (suspected) exposure to COVID-19; E87.6 Hypokalemia; R74.02 Elevation of levels of lactic acid dehydrogenase [LDH]; F32.A Depression, unspecified; F41.1 Generalized anxiety disorder; Z86.16 Personal history of COVID-19
CPT/HCPCS: 36415; 36600; 71045; 76775; 80048; 80053; 81001; 82375; 82436; 82550; 82570; 82805; 82948; 83050; 83605; 83615; 83690; 83735; 84100; 84133; 84146; 84300; 84703; 85014; 85018; 85025; 85049; 85055; 85380; 85384; 85610; 85730; 85999; 86738; 86850; 86900; 86901; 87040; 87070; 87081; 87147; 87181; 87186; 87205; 87449; 87637; 87651; 87899; 88184; 93005; 93970; 94002; 94640; 96365; 96375; 99285; A9270; C1751; C9113; J0131; J0456; J0692; J0696; J1720; J1885; J2060; J2250; J2270; J2543; J3010; J3370; J3475; J3480; J7030; J7070; J7120; P9047